=== PATIENT | female | born 1935 | race Caucasian/White ===

== ENCOUNTER 2017-08-29 07:56 | Inpatient (IN) | payer MEDICARE ==
[2017-08-29] MEDS: SOD CHLORIDE 0.9% 1,000 ML IV ×2 (08:29→10:09)
[2017-08-29 08:47] LABS: ADD MAN DIFF? NO
[2017-08-29 08:55] LABS: ADD UMIC NO; UR ASCORBIC ACID NEGATIVE (NEGATIVE); UR BILIRUBIN (Dip) NEGATIVE (NEGATIVE); UR BLOOD (Dip) NEGATIVE (NEGATIVE); UR CLARITY CLEAR (CLEAR); UR COLOR YELLOW (YELLOW); UR GLUCOSE (Dip) NEGATIVE (NEGATIVE); UR KETONES (Dip) NEGATIVE (NEGATIVE); UR LEUKOCYTE ESTERASE (Dip) NEGATIVE Leu/ul (NEGATIVE); UR NITRITE (Dip) NEGATIVE (NEGATIVE); UR SPECIFIC GRAVITY (Dip) 1.012 (1.003-1.030); UR TOTAL PROTEIN (Dip) NEGATIVE (NEGATIVE); UR UROBILINOGEN (Dip) NEGATIVE (NEGATIVE)
[2017-08-29 08:58] LABS: WHITE BLOOD COUNT 12.4 10^3/ul (4.8-10.8)
[2017-08-29 08:58] LABS: BASOPHILS % 0.2 % (0.0-2.0); HEMATOCRIT 32.2 % (37.0-47.0); HEMOGLOBIN 10.8 g/dl (12.0-16.0); LYMPHOCYTES # 0.6 10^3/ul (0.8-2.9); LYMPHOCYTES % 5.2 % (15.0-51.0); MEAN CORPUSCULAR HEMOGLOBIN 33.8 pg (29.0-33.0); MEAN CORPUSCULAR HGB CONC 33.5 g/dl (32.0-37.0); MEAN CORPUSCULAR VOLUME 100.6 fl (82.0-101.0); MEAN PLATELET VOLUME 10.6 fl (7.4-10.4); MONOCYTE # 0.9 10^3/ul (0.3-0.9); MONOCYTES % 6.9 % (0.0-11.0); NEUTROPHIL # 10.8 10^3/ul (1.6-7.5); NEUTROPHILS % 87.1 % (39.0-77.0); PLATELET COUNT 137 10^3/UL (140-415); RED CELL DISTRIBUTION WIDTH 13.5 % (11.5-14.5)
[2017-08-29] MEDS: ACETAMINOPHEN 325 MG TAB PO (08:59)
[2017-08-29 09:14] LABS: LACTIC ACID 1.2 mmol/L (0.5-2.0)
[2017-08-29 09:14] LABS: ALANINE AMINOTRANSFERASE 27 IU/L (13-69); ALBUMIN 3.6 g/dl (3.3-4.9); ALBUMIN/GLOBULIN RATIO 1.02; ALKALINE PHOSPHATASE 34 IU/L (42-121); ANION GAP 11 (8-16); ASPARTATE AMINO TRANSFERASE 29 IU/L (15-46); BILIRUBIN,INDIRECT 0.6 mg/dl (0-1.1); BILIRUBIN,TOTAL 0.6 mg/dl (0.2-1.3); BLOOD UREA NITROGEN 24 mg/dl (7-20); CALCIUM 8.9 mg/dl (8.4-10.2); CARBON DIOXIDE 29 mmol/L (21-31); CHLORIDE 101 mmol/L (97-110); CREATININE 0.86 mg/dl (0.44-1.00); GLUCOSE 108 mg/dl (70-220); SODIUM 137 mmol/L (135-144); TOTAL PROTEIN 7.1 g/dl (6.1-8.1)
[2017-08-29 09:31] LABS: TROPONIN-I 0.289 ng/ml (0.00-0.12)
[2017-08-29 09:49] LABS: PARTIAL THROMBOPLASTIN TIME 27.8 Sec (25.0-35.0); PROTIME 13.3 Sec (11.9-14.9)
[2017-08-29] MEDS: ASPIRIN 81 MG TAB PO (09:56)
[2017-08-29] MEDS: VANCOMYCIN 1 GM (PMX) 250 ML IVPB (09:57)
[2017-08-29] MEDS: CEFEPIME 2GM/50 ML (PMX) 50 ML IVPB (09:57)
[2017-08-29] MEDS ORDERED: ONDANSETRON 4 MG INJ IV (10:30)
[2017-08-29] MEDS ORDERED: ACETAMINOPHEN 325 MG TAB PO (10:30)
[2017-08-29 11:18] LABS: LACTIC ACID 0.7 mmol/L (0.5-2.0)
[2017-08-29] MEDS ORDERED: NACL 0.9% 3 ML SYG IV (12:00)
[2017-08-29] MEDS ORDERED: VANCOMYCIN IV PER PHARMACY XX (12:00)
[2017-08-29] MEDS ORDERED: HYDROmorphONE 0.5 MG/0.5 ML SYG IV (12:00)
[2017-08-29] MEDS: ENOXAPARIN 40 MG/0.4 ML SYG SC (12:21)
[2017-08-29 15:00] LABS: LACTIC ACID 1.1 mmol/L (0.5-2.0)
[2017-08-29 15:20] LABS: TROPONIN-I 0.276 ng/ml (0.00-0.12)
[2017-08-30 08:53] LABS: ADD MAN DIFF? NO
[2017-08-30 08:56] LABS: WHITE BLOOD COUNT 9.1 10^3/ul (4.8-10.8)
[2017-08-30 08:56] LABS: BASOPHILS % 0.2 % (0.0-2.0); EOSINOPHILS % 0.1 % (0.0-7.0); HEMATOCRIT 34.1 % (37.0-47.0); HEMOGLOBIN 11.2 g/dl (12.0-16.0); LYMPHOCYTES # 1.2 10^3/ul (0.8-2.9); LYMPHOCYTES % 13.5 % (15.0-51.0); MEAN CORPUSCULAR HEMOGLOBIN 33.5 pg (29.0-33.0); MEAN CORPUSCULAR HGB CONC 32.8 g/dl (32.0-37.0); MEAN CORPUSCULAR VOLUME 102.1 fl (82.0-101.0); MEAN PLATELET VOLUME 11.2 fl (7.4-10.4); MONOCYTE # 0.8 10^3/ul (0.3-0.9); MONOCYTES % 8.8 % (0.0-11.0); NEUTROPHILS % 76.8 % (39.0-77.0); PLATELET COUNT 146 10^3/UL (140-415); RED BLOOD COUNT 3.34 10^6/ul (4.20-5.40)
[2017-08-30] MEDS: ENOXAPARIN 40 MG/0.4 ML SYG SC (09:00)
[2017-08-30] MEDS: ASPIRIN 81 MG TAB PO (09:16)
[2017-08-30 09:18] LABS: ALANINE AMINOTRANSFERASE 28 IU/L (13-69); ALBUMIN 3.6 g/dl (3.3-4.9); ALBUMIN/GLOBULIN RATIO 1.05; ALKALINE PHOSPHATASE 37 IU/L (42-121); ANION GAP 15 (8-16); ASPARTATE AMINO TRANSFERASE 30 IU/L (15-46); BILIRUBIN,INDIRECT 0.5 mg/dl (0-1.1); BILIRUBIN,TOTAL 0.5 mg/dl (0.2-1.3); BLOOD UREA NITROGEN 19 mg/dl (7-20); CALCIUM 8.4 mg/dl (8.4-10.2); CARBON DIOXIDE 23 mmol/L (21-31); CHLORIDE 105 mmol/L (97-110); CHOL/HDL RATIO 2.6 RATIO; CHOLESTEROL 146 mg/dl (100-200); CREATININE 0.88 mg/dl (0.44-1.00); GLUCOSE 88 mg/dl (70-220); HDL CHOLESTEROL 55 mg/dl (33-92); LDL CHOLESTEROL,CALCULATED 74 mg/dl; POTASSIUM 3.8 mmol/L (3.5-5.1); SODIUM 139 mmol/L (135-144); TRIGLYCERIDES 85 mg/dl (0-149)
[2017-08-30] MEDS: LIDOCAINE 1% (MPF) 5 ML VIAL (10:39)
[2017-08-30] MEDS: CEFEPIME 1GM/50 ML (PMX) 50 ML IVPB (11:22)
[2017-08-30 11:49] LABS: FLUID LD 403 U/L
[2017-08-30 11:50] LABS: FLUID TOTAL PROTEIN < 2.0 g/dl; FLUID TYPE THORACENTESIS FLUID
[2017-08-30] MEDS: VANCOMYCIN 500MG/NS (PMX) 100 ML IVPB (12:07)
[2017-08-31 09:08] LABS: ADD MAN DIFF? NO
[2017-08-31 09:12] LABS: EOSINOPHILS % 0.2 % (0.0-7.0); HEMATOCRIT 30.7 % (37.0-47.0); HEMOGLOBIN 10.4 g/dl (12.0-16.0); LYMPHOCYTES % 9.6 % (15.0-51.0); MEAN CORPUSCULAR HEMOGLOBIN 33.7 pg (29.0-33.0); MEAN CORPUSCULAR HGB CONC 33.9 g/dl (32.0-37.0); MEAN CORPUSCULAR VOLUME 99.4 fl (82.0-101.0); MEAN PLATELET VOLUME 11.2 fl (7.4-10.4); MONOCYTES % 9.6 % (0.0-11.0); NEUTROPHIL # 8.1 10^3/ul (1.6-7.5); PLATELET COUNT 129 10^3/UL (140-415); RED BLOOD COUNT 3.09 10^6/ul (4.20-5.40); RED CELL DISTRIBUTION WIDTH 13.7 % (11.5-14.5)
[2017-08-31 09:12] LABS: WHITE BLOOD COUNT 10.2 10^3/ul (4.8-10.8)
[2017-08-31] MEDS: ASPIRIN 81 MG TAB PO (09:21)
[2017-08-31] MEDS: CEFEPIME 1GM/50 ML (PMX) 50 ML IVPB (09:21)
[2017-08-31] MEDS: ENOXAPARIN 40 MG/0.4 ML SYG SC (09:32)
[2017-08-31 09:34] LABS: ANION GAP 10 (8-16); BLOOD UREA NITROGEN 18 mg/dl (7-20); CALCIUM 8.2 mg/dl (8.4-10.2); CARBON DIOXIDE 23 mmol/L (21-31); CHLORIDE 107 mmol/L (97-110); CREATININE 0.78 mg/dl (0.44-1.00); GLUCOSE 115 mg/dl (70-220); MAGNESIUM 2.2 mg/dl (1.7-2.5); PHOSPHORUS 2.2 mg/dl (2.5-4.9); POTASSIUM 3.7 mmol/L (3.5-5.1); SODIUM 136 mmol/L (135-144)
[2017-08-31] MEDS: VANCOMYCIN 500MG/NS (PMX) 100 ML IVPB (10:30)
[2017-09-01 09:02] LABS: ADD MAN DIFF? NO
[2017-09-01] MEDS: ASPIRIN 81 MG TAB PO (09:05)
[2017-09-01 09:09] LABS: WHITE BLOOD COUNT 8.4 10^3/ul (4.8-10.8)
[2017-09-01 09:09] LABS: BASOPHILS % 0.1 % (0.0-2.0); EOSINOPHILS # 0.1 10^3/ul (0.0-0.5); EOSINOPHILS % 0.8 % (0.0-7.0); HEMATOCRIT 37.2 % (37.0-47.0); LYMPHOCYTES # 0.9 10^3/ul (0.8-2.9); LYMPHOCYTES % 10.4 % (15.0-51.0); MEAN CORPUSCULAR HGB CONC 32.3 g/dl (32.0-37.0); MEAN CORPUSCULAR VOLUME 102.2 fl (82.0-101.0); MEAN PLATELET VOLUME 11.1 fl (7.4-10.4); MONOCYTE # 0.7 10^3/ul (0.3-0.9); MONOCYTES % 8.5 % (0.0-11.0); NEUTROPHIL # 6.7 10^3/ul (1.6-7.5); NEUTROPHILS % 79.8 % (39.0-77.0); PLATELET COUNT 141 10^3/UL (140-415); RED BLOOD COUNT 3.64 10^6/ul (4.20-5.40); RED CELL DISTRIBUTION WIDTH 13.7 % (11.5-14.5)
[2017-09-01] MEDS: ENOXAPARIN 40 MG/0.4 ML SYG SC (09:09)
[2017-09-01 09:29] LABS: ANION GAP 12 (8-16); BLOOD UREA NITROGEN 18 mg/dl (7-20); CALCIUM 8.3 mg/dl (8.4-10.2); CARBON DIOXIDE 25 mmol/L (21-31); CHLORIDE 105 mmol/L (97-110); CREATININE 0.85 mg/dl (0.44-1.00); GLUCOSE 141 mg/dl (70-220); MAGNESIUM 2.2 mg/dl (1.7-2.5); PHOSPHORUS 2.1 mg/dl (2.5-4.9); POTASSIUM 3.7 mmol/L (3.5-5.1); SODIUM 138 mmol/L (135-144)
[2017-09-01] MEDS: CEFEPIME 1GM/50 ML (PMX) 50 ML IVPB (09:35)
[2017-09-01] MEDS: VANCOMYCIN 500MG/NS (PMX) 100 ML IVPB ×2 (10:12→22:50)
[2017-09-01 10:51] LABS: VANCOMYCIN,TROUGH 5.3 ug/ml (10.0-20.0)
[2017-09-01] MEDS: FUROSEMIDE 20 MG TAB PO (16:37)
[2017-09-02] MEDS: CEFEPIME 1GM/50 ML (PMX) 50 ML IVPB (09:59)
[2017-09-02] MEDS: ASPIRIN 81 MG TAB PO (09:59)
[2017-09-02] MEDS: LISINOPRIL 5 MG TAB PO (10:01)
[2017-09-02] MEDS: ENOXAPARIN 40 MG/0.4 ML SYG SC (10:04)
[2017-09-02] MEDS: FUROSEMIDE 20 MG TAB PO (11:45)
== END 2017-09-02 12:10 | disposition home or self-care (01) | DRG 871 ==
LOC: MS2 08-31 18:27 → E/R 07:56 → MS4 10:20
PROC: 0W993ZX Drainage of Right Pleural Cavity, Percutaneous Approach, Diagnostic (ICD-10-PCS; principal; 2017-08-30)
DX: A41.9 Sepsis, unspecified organism (principal); J18.9 Pneumonia, unspecified organism; I21.A1 Myocardial infarction type 2; I50.23 Acute on chronic systolic (congestive) heart failure; J90 Pleural effusion, not elsewhere classified; R06.03 Acute respiratory distress; I42.9 Cardiomyopathy, unspecified; I44.7 Left bundle-branch block, unspecified; Z95.2 Presence of prosthetic heart valve
CPT/HCPCS: 36415; 71045; 71275; 76942; 80048; 80053; 80061; 80202; 81003; 83605; 83615; 83735; 83986; 84100; 84157; 84484; 85025; 85610; 85730; 87040; 87070; 87086; 87102; 87116; 87400; 88104; 88305; 93005; 93306; 96365; 96366; 96372; 96375; 99291-25